=== PATIENT | female | born 1940 | race Caucasian/White ===

== ENCOUNTER 2019-03-09 00:49 | Emergency (ER) | payer MEDICARE, OTHER ==
[2019-03-09] MEDS ORDERED: Silver Nitrate Applicator Each ONE (01:21)
--- NOTE | 2019-03-09 01:34 | EDM.PDOC ---
ED HPI GENERAL MEDICAL PROBLEM - General Chief Complaint: [employer] Problem Stated Complaint: MEDICAL [facility] Time Seen by Provider: 03/09/19 01:10 Source of Information: Reports: EMS, Family History Limitations: Reports: No Limitations (Patient has severe dementia but prison records, family history and earlier visit to the emergency room provide a good history) - History of Present Illness INITIAL COMMENTS - FREE TEXT/NARRATIVE: 79-year-old female who was had vaginal bleeding for the past 36 hours, evaluated in the [facility] this morning and found to have a vaginal source of bleeding. After [employer] consultation was obtained, recommendation was to pack the vaginal area and have an [employer] exam next week. However the bleeding has become persistent and the family wanted a second opinion. Patient herself is in no pain. Apparently her history is that she has had a hysterectomy years ago. Onset: Unknown/Unsure (Bleeding started sometime overnight last night) Location: Reports: Other (Vaginal bleeding) Associated Symptoms: Reports: No Other Symptoms - Related Data Allergies Allergy/AdvReac Type Severity Reaction Status Date / Time diazepam Allergy Other Verified 03/09/19 01:04 tramadol Allergy Diarrhea Verified 03/09/19 01:04 Home Meds: Home Meds Aspirin 81 mg PO DAILY 03/09/19 [History] Cholecalciferol (Vitamin D3) [Vitamin D3] 1,000 unit PO DAILY 03/09/19 [History] Cholestyramine/Sucrose [Cholestyramine Packet] 4 gm PO BID 03/09/19 [History] Cyanocobalamin (Vitamin B-12) [Vitamin B-12] 5,000 mcg PO DAILY 03/09/19 [ History] Escitalopram [Lexapro] 1 tab PO DAILY 03/09/19 [History] Famotidine [Heartburn Prevention] 20 mg PO BID 03/09/19 [History] Furosemide [Lasix] 20 mg PO DAILY 03/09/19 [History] L. Acidophilus/Pectin, [place] [Acidophilus-Pectin Capsule] 1 each PO DAILY 03/09 [History] Levothyroxine Sodium [Synthroid] 175 mcg PO ACBREAKFAST 03/09/19 [History] Metoclopramide HCl [Reglan] 10 mg PO TIDMEALS 03/09/19 [History] Metoprolol Succinate [Toprol XL 50mg] 75 mg PO BID 03/09/19 [History] Penicillin V Potassium [Veetids] 1,000 mg PO BID 03/09/19 [History] Potassium Chloride [Klor-Con] 20 meq PO DAILY 03/09/19 [History] dilTIAZem HCl [Diltiazem 24Hr ER] 180 mg PO DAILY 03/09/19 [History] ED ROS GENERAL - Review of Systems Review Of Systems: See Below Constitutional: Denies: Fever, Chills Respiratory: Denies: Shortness of Breath GI/Abdominal: Denies: Abdominal Pain, Nausea, Vomiting Psychiatric: Reports: Other (Significant dementia) ED EXAM, GENERAL - Physical Exam Exam: See Below Exam Limited By: No Limitations General Appearance: Alert, No Apparent Distress Eye Exam: Bilateral Eye: Normal Inspection Respiratory/Chest: No Respiratory Distress GI/Abdominal: Non-Tender (Female) Exam: Vaginal Bleeding (Speculum exam reveals significant vaginal bleeding coming from what appears to be a cervix there was also some oozing from a few small atrophic spots on the posterior vaginal wall) Neurological: Alert. No: Oriented Psychiatric: Anxious Skin Exam: Warm, Dry Course - Vital Signs Last Recorded V/S: Last Vital Signs Temp 97 F 03/09/19 01:01 Pulse 88 03/09/19 03:11 Resp 18 03/09/19 03:11 BP 103/67 03/09/19 03:11 Pulse Ox 95 03/09/19 03:11 - Orders/Labs/Meds Labs: Laboratory Tests 03/09/19 Range/Units 01:28 WBC 6.6 (4.5-11.0) K/uL RBC 4.27 (3.30-5.50) M/uL Hgb 13.4 (12.0-15.0) g/dL Hct 41.0 (36.0-48.0) % MCV 96 (80-98) fL MCH 31 (27-31) pg MCHC 33 (32-36) % Plt Count 199 (150-400) K/uL Neut % (Auto) 47 (36-66) % Lymph % (Auto) 38 (24-44) % [place] % (Auto) 11 H (2-6) % Eos % (Auto) 3 (2-4) % Baso % (Auto) 1 (0-1) % Meds: Medications Discontinued Medications Generic Name Dose Route Start Last Admin Trade Name Freq PRN Reason Stop Dose Admin Silver Nitrate Confirm 03/09/19 01:21 03/09/19 02:22 Silver Nitrate Administered 03/09/19 01:22 1 each Dose Administration 1 each .ROUTE .STK-MED ONE Silver Nitrate 1 each 03/09/19 02:21 03/09/19 01:25 Silver Nitrate TOP 03/09/19 02:22 1 each ONETIME ONE Administration - Re-Assessments/Exams Free Text/Narrative Re-Assessment/Exam: 03/09/19 01:32 Initial exam showed a small amount of bleeding of the posterior vaginal wall which was cauterized with silver nitrate. However bleeding continued so further examination revealed an anterior cervix with significant bleeding through the cervical canal. This is somewhat confusing as to supposedly a hysterectomy in her history. A CBC was repeated. 03/09/19 02:22 Hemoglobin is stable. I called on the [facility] to see if they could admit the patient until an [employer] consult could be obtained, their hospital was full. Our on-call surgeon here is uncomfortable with doing obstetrics surgery, so [facility] was consulted. 03/09/19 06:22 [place] [employer] also uncomfortable as oncology is not available in [place]. Dr. Bustamante, [employer] for [facility] kindly accepted the patient in transfer and she'll be evaluated briefly in the emergency room prior to admission. Departure - Departure Time of Disposition: 03:35 Disposition: DC/Tfer to [facility] 02 Clinical Impression: Vaginal bleeding - Discharge Information Referrals: Ponce Reyes MD [Primary Care Provider] - Forms: ED Department Discharge Care Plan Goals: Patient is to be transported to [facility] by EMS for admission, treatment and further evaluation of worsening vaginal bleeding
[2019-03-09] MEDS ORDERED: Silver Nitrate Applicator Each TOP ONE (02:21)
== END 2019-03-09 04:22 ==
LOC: JP.ED 00:49
DX: N93.9 Abnormal uterine and vaginal bleeding, unspecified (principal); Z79.899 Other long term (current) drug therapy; Z79.82 Long term (current) use of aspirin; Z88.8 Allergy status to other drugs, medicaments and biological substances
CPT/HCPCS: 12001; 36415; 85025; 99284